=== PATIENT | male | born 1930 | race Caucasian/White ===

== ENCOUNTER 2018-06-17 20:56 | Inpatient (IN) | payer OTHER, MEDICARE ==
[~2018-06-17] VITALS: Ht 157.5 cm; Wt 50.8 kg
[2018-06-17] MEDS ORDERED: AMLODIPINE BESYL5 M1 PO (22:14)
[2018-06-17] MEDS ORDERED: PROBIOTIC1 EACH PO (22:15)
[2018-06-17] MEDS ORDERED: ASPIRIN EC81 M1 PO (22:15)
[2018-06-17] MEDS ORDERED: MULTIVITAMINS1 EAC9 PO (22:15)
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
--- NOTE | 2018-06-17 23:30 | RADIOLOGY REPORT ---
EXAMINATION: XR THORACOLUMBAR SPINE CLINICAL INFORMATION: Fall with back pain COMPARISON: None TECHNIQUE: 2 views of the thoracolumbar spine were obtained. FINDINGS: The bones are osteopenic. The degree of osteopenia limits the evaluation. Overall alignment appears maintained. Multilevel vertebral body compression deformities are suspected, although not well-defined given the degree of osteopenia and the limitations of the study. The visualized lungs are clear. Aortic calcifications noted. The bowel gas pattern is unremarkable. Hardware within the right femur. IMPRESSION: Evaluation is limited secondary to the degree of osteopenia. Alignment is maintained. Suspect multilevel vertebral body compression deformities, of uncertain chronicity. These are poorly demonstrated.
--- NOTE | 2018-06-17 23:32 | RADIOLOGY REPORT ---
EXAMINATION: XR HIP, RIGHT CLINICAL INFORMATION: Fall with hip pain COMPARISON: 03/15/2010 TECHNIQUE: Two views of the right hip. FINDINGS: 3 cannulated screws are in place transfixing a prior right femoral neck fracture. Hardware is intact. Alignment at the femoral neck is anatomic. There is a somewhat irregular appearance of the right femoral greater trochanter which may be associated with patient rotation and osteopenia. A nondisplaced isolated fracture of the greater trochanter cannot be excluded. Mild degenerative changes at the hip with narrowing and sclerosis. The visualized right hemipelvis is intact. IMPRESSION: Irregular appearance of the right femoral greater trochanter which may be associated with patient rotation and osteopenia. Isolated fracture at this location cannot be excluded. Correlate with location of tenderness. If clinically indicated this could be further evaluated with CT.
--- NOTE | 2018-06-18 00:32 | CT SCAN REPORT ---
EXAMINATION: CT LOWER EXTREMITY WITHOUT CONTRAST, RIGHT CLINICAL INFORMATION: Question of right hip fracture on plain films. COMPARISON: Radiograph's from 06/17/2018 TECHNIQUE: Multidetector volumetric imaging of the right lower extremity targeting the hip performed without IV contrast. Coronal and sagittal reformatted images were obtained and reviewed. DLP: 814 mGy-cm FINDINGS: There is a minimally displaced fracture of the right femoral greater trochanter, with approximately 0.7 cm of distraction. The greater trochanter fracture is comminuted. No additional fractures are seen. 3 cannulated screws remain in place transfixing a previous right femoral neck fracture. Hardware is intact. No acute femoral neck fracture. The femoral head is well-seated within its acetabulum. There are advanced degenerative changes present, with [id number] appearance. Marginal osteophytes are present. The visualized portion of the right hemipelvis is intact. Mabry catheter in place within the bladder. Bladder wall thickening. There is a right inguinal hernia with hydrocele and possible varicocele. Vascular calcifications are present. No lymphadenopathy. IMPRESSION: Isolated right femoral greater trochanteric fracture with slight distraction of the fracture fragments.
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
[2018-06-18 02:59] VITALS: BP 152/74
[2018-06-18 06:44] VITALS: BP 134/64
[2018-06-18 07:32] LABS: ABSOLUTE BASOPHIL COUNT 0 /CUMM (0.0-0.2); ABSOLUTE EOSINOPHIL COUNT 0 /CUMM (0.0-0.7); ABSOLUTE LYMPH COUNT 0.6 /CUMM (1.2-3.4); ABSOLUTE MONOCYTE COUNT 0.6 /CUMM (0.10-0.60); BASOPHIL % 0.2 % (0.0-2.0); EOSINOPHIL % 0.2 % (0-5); GRANULOCYTE % 83.1 % (42.2-75.2); HEMATOCRIT 35.3 % (42-52); MEAN CORPUSCULAR HGB 31.8 PG (27.0-31.0); MEAN CORPUSCULAR HGB CONC 34.5 G/DL (33.0-37.0); MEAN CORPUSCULAR VOLUME 92.3 FL (80.0-94.0); MEAN PLATELET VOLUME 9.2 FL (7.4-10.4); PLATELET COUNT 153 /CUMM (130-400); RBC DISTRIBUTION WIDTH 15.7 % (11.5-14.5); RED BLOOD CELL CT 3.83 /CUMM (4.70-6.10); WHITE BLOOD CELL COUNT 7.2 /CUMM (4.8-10.8)
--- NOTE | 2018-06-18 10:47 | PN- Housestaff ---
Serge Goldman 06/18/18 0856: Subjective Follow-up For: History of fall, right hip trochanteric fracture, CVA 5 weeks ago. Subjective: Patient seen and examined bed. He is poor historian. His only complaint is difficulty moving right his right hip. he denies cough, shortness of breath, chest pain, abdominal pain, loose motion. Review of Systems Constitutional: Reports: see HPI. Objective Last 24 Hrs of Vital Signs/I&O Vital Signs Date Time Temp Pulse Resp B/P B/P Pulse O2 O2 Flow FiO2 Mean Ox Delivery Rate 06/19 1422 97.9 78 18 132/66 94 06/19 0854 94 118/74 06/19 0706 98.3 77 18 136/68 93 Room Air 06/18 2246 98.3 79 20 156/66 96 Room Air 06/18 2104 79 156/66 Intake & Output 06/19 1600 06/19 0800 06/19 0000 Intake Total 600 Output Total 500 1150 600 Balance 100 -1150 -600 Intake, Oral 600 Number 2 Bowel Movements Output, Urine 500 1150 600 Physical Exam General Appearance: Alert, Oriented X3, Cooperative Assessment/Plan Assessment: 88 year old male with past medical history of right side CVA 4 weeks ago, HTN, GERD presenting to ED for an unwitnessed fall. He feel off from wheel chair and hit couch. He denies history of loss of consciousness, head trauma, bleeding. His family is not in favour of blood work as they said we recentely did in other hospital and reports will be avilable soon and they also denying heavy pain medication for patient excepoot tyelanol. =Problems list: =Right Femoral Greater Trochanteric Fracture =Multileval vertebral body compression deformities =Recent CVA w/ right sided residual deficits = Hypertension =Right Femoral Greater Trochanteric Fracture: Irregular appearance of the right femoral greater trochanter which may be associated with patient rotation and osteopenia. Isolated fracture at this location cannot be excluded. Correlate with location of tenderness. If clinically indicated this could be further evaluated with CT. Lower Extremity Ct: Isolated right femoral greater trochanteric fracture with slight distraction of the fracture fragments Ortho consultaion pllaced they recommended, -WBAT with walker -Pain meds for pain control -F/U with us in 6 weeks for repeat films of right hip [phone] =Multileval vertebral body compression deformities X-ray finding Evaluation is limited secondary to the degree of osteopenia. Alignment is maintained. Suspect multilevel vertebral body compression deformities, of uncertain chronicity. These are poorly demonstrated. Pain medication Tyalnol started. He is also taking vtamin D supplemnent at home furthur he should be in touc based with his PCP for furthur treatment regarding his osteopenia and osteoporosis. =Physical theraphy consult =Continu home medication =change position every 2 hours to avoid bed sores. =Frequent exam for bedsore =Full code Problem List: 1. Fall at home 2. 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 Patient fell out of wheelchair and landed on his right side. In the ED, patient's family refuses to have blood work on patient. XR of T -L spine shows multilevel vertebral body compression of uncertain chronicity. XR of right hip cannot r/o fracture. CT of right LE shows right femoral greater trochanteric fracture. Overnight no new complaints, vitals stable. Afebrile. Patient is admitted to [facility] for right femoral greater trochanteric fracture. Continue Pain control. Ortho consult pending. Fall precautions. Patient is on asa but not statin. Patient/family wishes naturopathic medicine and is on blood thinner naturokinase. ASA 3 times a week. He has VNS at home. Case management aware.
--- NOTE | 2018-06-18 13:50 | Cons- Orthopedic ---
General Information and HPI Consulting Request Date of Consult: 06/18/18 Requested By: Faina Armendariz MD History of Present Illness: 88 y/o male c/o right hip pain s/p fall out of wheelchair. ER order x-rays which show a question of greater trochanter fracture. A CT scan was ordered which confirmed this. Patient points to pain on lateral aspect of hip. Allergies/Medications Allergies: Coded Allergies: No Known Allergies (06/17/18) Home Med List: Amlodipine Besylate 5 MG TABLET 1 TAB PO BID BP (Reported) Aspirin (Ecotrin*) 81 MG TABLET.DR 1 TAB PO PRN HEART/BP (Reported) Lactobacillus Acidophilus (Probiotic) (Unknown Strength) CAPSULE (Unknown Dose ) PO DAILY PROBIOTIC (Reported) Multiple Vitamin (Multivitamins) 1 EACH TABLET 1 TAB PO DAILY SUPPLEMENT ( Reported) Past History Medical History Blood Transfusion Hx: No Neurological: CVA EENT: allergies Cardiovascular: hypertension Respiratory: NONE Gastrointestinal: GERD Hepatic: NONE Renal: NONE Musculoskeletal: COMPRESSION FRACTURES Psychiatric: anxiety Endocrine: NONE Blood Disorders: NONE Cancer(s): NONE 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8 87 18 133/73 94 Room Air 06/17 2319 97.6 91 20 175/79 92 Room Air 06/17 2109 97.1 103 20 134/77 94 Room Air Intake & Output 06/18 1600 06/18 0806/18 0000 06/17 1600 06/17 0000 Intake Total 240 0 Output Total Balance 240 0 Intake, Oral 240 0 Patient 112 lb 115 lb Weight Weight Bed scale Reported by Patient Measurement Method Physical Exam: Tender over lateral aspect of right hip. skin intact with well healed incisions from ORIF multiple years ago over right hip. Tender with motion of right hip. X- rays and CT scan show greater trochanter fracture there is good alignment of canulated screws in right hip. Assessment/Plan Assessment/Plan right greater trochanter hip fracture -WBAT with walker -Pain meds for pain control -F/U with us in 6 weeks for repeat films of right hip [phone] Consult Acknowledgment - Thank you for your consult request.
[2018-06-18 16:00] VITALS: BP 138/78
[2018-06-18 22:46] VITALS: BP 156/66
[2018-06-19 07:06] VITALS: BP 136/68
--- NOTE | 2018-06-19 09:17 | PN- Housestaff ---
See Addendum Subjective Follow-up For: right femoral intratrochanteric fracture Subjective: Patient was seen and exmained at bedside. The son who was with him at, requested the patient be allowed to home today since his "hip is non-surgical' and they could let him settle him at home over the weekend. The son is also requesting copies of his medical reports. The patient had no complaints. Denies pain, fever , chill, nausea or vomiting. Review of Systems Constitutional: Reports: see HPI. Objective Last 24 Hrs of Vital Signs/I&O Vital Signs Date Time Temp Pulse Resp B/P B/P Pulse O2 O2 Flow FiO2 Mean Ox Delivery Rate 06/19 0854 94 118/74 06/19 0706 98.3 77 18 136/68 93 Room Air 06/18 2246 98.3 79 20 156/66 96 Room Air 06/18 2104 79 156/66 06/18 1600 98.2 68 16 138/78 95 Room Air Intake & Output 06/19 1600 06/19 0800 06/19 0000 Intake Total Output Total 200 1150 600 Balance -200 -1150 -600 Number 1 Bowel Movements Output, Urine 200 1150 600 Physical Exam General Appearance: Alert, Oriented X3, Cooperative, No Acute Distress Neck: Supple Cardiovascular: Regular Rate, Normal S1, Normal S2 Lungs: Clear to Auscultation Abdomen: Normal Bowel Sounds, Soft Assessment/Plan Assessment: PROBLEM LIST: 1. Right Femoral Greater Trochanteric Fracture 2. Multileval vertebral body compression deformities 3. Recent CVA w/ right sided residual deficits 4. Hypertension PLAN: * Pain management with Tylenol PO for now; patients daughter and son to be contacted for further pain management; avoid narcotic. * Orthopedic Surgery consultation appreciated. Will follow recommendations. Would advise the patient to seek an appointment with ortho in 6 weeks. * No labs due to recent admission children would like to avoid * We are continuing his home meds. amlodipine 5mg BID; ASA 3x/week * Physical therapy consultation appreciated * The patient can be discharged home today. The son requested pain meds PRN in addition to Tyelenol. We would prescribe him Tramadol 50mg q6 PRN. Problem List: 1. Greater trochanter fracture 2. Fall at home 3. Multifactorial gait disorder 4. Compression fracture Pain Ratin Pain Location: na Pain Goal: Remain pain free Pain Plan: na Tomorrow's Labs & Rationales: na
[2018-06-19] MEDS ORDERED: TRAMADOL HCL50 M1 PO ×2 (13:46→14:43)
--- NOTE | 2018-06-19 13:54 | Patient Discharge Instructions ---
Discharge Instructions General Discharge Information You were seen/treated for: Right femoral intratrochanteric fracture Watch for these problems: 1. Please see your PCP withihn a week of discharge 2. Please F/U with the orthopaedician in 6 weeks for repeat films of right hip. You call [phone] to schedule an appointment. Acute Coronary Syndrome Inclusion Criteria At DC or during hospital stay patient has or had the following: ACS DIAGNOSIS No Discharge Core Measures Meds if any: Prescribed or Continued at Discharge Meds if any: NOT Prescribed or Continued at Discharge Congestive Heart Failure Inclusion Criteria At DC or during hospital stay patient has or had the following: CHF DIAGNOSIS No Discharge Core Measures Meds if any: Prescribed or Continued at Discharge Meds if any: NOT Prescribed or Continued at Discharge Cerebrovascular accident Inclusion Criteria At DC or during hospital stay patient has or had the following: CVA/TIA Diagnosis Yes Discharge Core Measures Meds if any: Prescribed or Continued at Discharge Meds if any: NOT Prescribed or Continued at Discharge Venous thromboembolism Inclusion Criteria VTE Diagnosis No VTE Type NONE VTE Confirmed by (Test) NONE Discharge Core Measures - Per Current guidelines, there needs to be overlap - treatment for the first 5 days of Warfarin therapy. - If discharged on Warfarin prior to 5 days of - overlap therapy, the patient will need to be - assessed for post discharge needs including - *Post discharge parental anticoagulation - *Warfarin and/or parental anticoagulation education - *Follow up date to check INR post discharge At least 5 days overlap therapy as Inpatient No Meds if any: Prescribed or Continued at Discharge Note: Overlap Therapy is Warfarin and Anticoagulant Meds if any: NOT Prescribed or Continued at Discharge
[2018-06-19 14:22] VITALS: BP 132/66
--- NOTE | 2018-06-21 11:49 | Discharge Summary ---
Visit Information Visit Dates Admission Date: 06/18/18 Discharge Date: 06/19/18 Hospital Course Course Attending Physician: Faina Armendariz MD Primary Care Physician: Patient Has No Primary Care Dr Consulting Request: Consulting Specialty: Orthopedics Hospital Course: 88-year-old male with past medical history of CVA with residual right-sided weakness 5 week ago, GERD, hypertension presented to emergency department with a chief complaint of unwitnessed fall. At that time he was under care by a visiting nurse per temporary time. Is the visiting nurse left patient unattended he tries to come out of the chair and he fall. There was no episode of unconsciousness, head trauma, or bleeding. Patient having his Mabry catheter. At the time of presentation to emergency department his vitals BP#175 /79, temperature# 97.1, heart rate# 103, respiratory# 20. His other labs were significant for radiological changes CT showed isolated right femoral trochanteric fracture as well as vertebral compression fracture. His daughter denied remaining investigation because she said it has already done in some other hospital. Examination showed right-sided hemiparesis, chest was clear, cardiac finding was normal. patient shifted to general medicine floor. His daughter Violette was contacted. Orthopedic consult and placed. Patient started on pain medication Tylenol. He is not complaining any kind of pain except weakness in the right side of the body . Orthopedic consultation done they recommended conservative treatment PT evaluation and follow-up within 4 weeks. Patient discharged next day with pain medication and his old medication. Right trochanteric fracture will be followed up on outpatient basis with orthopedic. If you need any medical attention will consult his primary care physician. Allergies: Coded Allergies: No Known Allergies (06/17/18) Disposition Summary Disposition Principal Diagnosis: Right femoral trochanteric fracture Additional Diagnosis: CVA with right-sided weakness Discharge Disposition: home health services Discharge Instructions General Discharge Information Code Status: Full Code Patient's Diet: Regular diet Patient's Activity: Ambulate up to his comfort level with support, change position every 2 hour to avoid bedsores Follow-Up Instructions/Appts: =Change positions every 2 hour to avoid bedsores = Keep head side of the bed elevated to avoid aspiration = Follow up with orthopedic on an outpatient basis = If he needs any medical attention consult with primary care physician. Medications at Discharge Discharge Medications: Continue taking these medications: Amlodipine Besylate (Amlodipine Besylate) 5 MG TABLET 1 Tablet ORAL TWICE DAILY Qty = 60 Comments: Last Taken:06/19/18 Time: 08:30 Aspirin (Ecotrin*) 81 MG TABLET.DR 1 Tablet ORAL as needed for HEART/BP Comments: Last Taken:06/18/18 Time: 0800AM Lactobacillus Acidophilus (Probiotic) (Unknown Strength) CAPSULE Unknown Dose ORAL DAILY Comments: NOT GIVEN IN HOSPITAL Multiple Vitamin (Multivitamins) 1 EACH TABLET 1 Tablet ORAL DAILY Comments: NOT GIVEN IN HOSPITAL Start taking the following new medications: Tramadol HCl (Tramadol HCl) 50 MG TABLET 50 Tablet ORAL EVERY 6 HOURS NEEDED as needed for pain Qty = 16 No Refills Instructions: . Comments: NOT GIVEN Copies To: Faina Armendariz MD Attending MD Review Statement Documenting Attending: Faina Armendariz MD
== END 2018-06-19 16:10 | disposition home health service (06) | DRG 536 ==
LOC: ERH 20:56 → ERHI 06-18 01:09 → 2NB 06-18 01:09 → ENPENDDIS 06-19 14:48 → 2NB 06-19 16:10
PROVIDERS: Emergency Medicine
DX: S72.111A Displaced fracture of greater trochanter of right femur, initial encounter for closed fracture (principal); I69.351 Hemiplegia and hemiparesis following cerebral infarction affecting right dominant side; I69.328 Other speech and language deficits following cerebral infarction; N13.9 Obstructive and reflux uropathy, unspecified; I10 Essential (primary) hypertension; K21.9 Gastro-esophageal reflux disease without esophagitis; F41.9 Anxiety disorder, unspecified; W05.0XXA Fall from non-moving wheelchair, initial encounter; Y92.009 Unspecified place in unspecified non-institutional (private) residence as the place of occurrence of the external cause; M48.50XS Collapsed vertebra, not elsewhere classified, site unspecified, sequela of fracture; Z87.81 Personal history of (healed) traumatic fracture
CPT/HCPCS: 2NBSP; 36592; 72080; 73502-RT; 81001; 82436; 93005; 93010; 97110-GO; 97112-GO; 97116-GO; 97161-GP; 97530-GO; J1644